=== PATIENT | male | born 1975 | race Caucasian/White ===

== ENCOUNTER 2020-09-13 09:10 | Emergency (ER) | payer OTHER, SELFPAY ==
[2020-09-13 09:15] VITALS: BP 140/95; PULSE 100; RESP 18; TEMP 36.8; O2SAT 98; BMI 21.2
--- NOTE | 2020-09-13 09:24 | XR_ITS ---
WS: [id number] Right knee, 3 views, 09/13/2020 Clinical Data: erythema, swelling, h/o MRSA Comparison: None. Findings: No fractures or dislocations are seen. The joint spaces are normal. The patella is intact. The soft t issues are unremarkable. XR/XR knee RT 3V* [id number] Impression: Negative right knee.
--- NOTE | 2020-09-13 09:33 | W.ED.SKABFB ---
Documented by User: Genevieve Alonso ZIYAD Foy 09/13/20 13:51 HPI - Skin/Abscess/Foreign Bdy General: Chief complaint: Skin/Abscess/Foreign Body Stated complaint: Bilateral knee redness Time Seen by Provider: 09/13/20 09:16 History of Present Illness: HPI narrative: 44-year-old male patient presents to the emergency department with 2-day history of redness to the kneecaps bilateral, he reports outbreak of staph that started to the bilateral lower legs approximately 7 days ago. He has a history of MRSA, history of substance abuse with stated last use 2 years ago. He denies fever or chills; reports increased pain with decreased ability of flexion to the right knee. He reports redness to the right knee is worsened and the knee is hot to the touch. He reports has not taken anything for pain. Onset (ago): day(s) (2) Location: LLE and RLE Severity: moderate Severity scale (1-10): 6 Quality: aching and constant Relieving factors: immobilization Exacerbating factors: movement Associated symptoms: Reports arthralgias and rigidity (rt knee); Deny chills, fever(s), nausea or vomiting Treatments prior to arrival: none Review of Systems General: Reports: 10 or more systems reviewed and unremarkable except in HPI and below Const: Denies: fever(s), chills, body aches, fatigue, malaise or diaphoresis Eyes: Denies: blurry vision, eye discomfort, eye redness or dry eyes ENMT: Denies: throat pain, dental pain or disequilibrium Card: Denies: chest pain, palpitations, irregular heart rhythm, swelling of feet/ankles, dyspnea on exertion or orthopnea Resp: Denies: dyspnea, productive cough, non-productive cough, wheezing, change in phlegm color, hemoptysis or chest congestion GI: Denies: abdominal pain, nausea, vomiting, dysphagia or heartburn : Denies: dysuria Musc: Reports: joint pain, joint swelling, joint redness, joint warmth and joint stiffness; Denies: neck pain or back pain Skin/Breast: Reports: erythema, skin tenderness and changes in skin color; Denies: rash or pruritus Neuro: Denies: headache(s), weakness in extremities or behavioral changes Psych: Denies: anxiety or depression Oscar/Lymph: Denies: easy bruising PFSH ED PFSH: Medical History IV drug abuse Methamphetamine abuse MRSA (methicillin resistant Staphylococcus aureus) Physical Exam Const: COMMON NORMALS: no acute distress, average body habitus, patient oriented x3, healthy appearing, alert and well nourished GENERAL APPEARANCE: cooperative, comfortable, well kempt, well developed and well hydrated NUTRITIONAL APPEARANCE: thin ORIENTATION/CONSCIOUSNESS: Yes awake, Yes oriented to person, Yes oriented to place and Yes oriented to time HENMT: COMMON NORMALS: normocephalic, Normal external nose present and moist oral mucous membranes HEAD & SCALP: normocephalic NOSE: Normal external nose present Eye: COMMON NORMALS: Equal, round and reactive pupils present and EOMs intact bilaterally GENERAL EYE: appearance normal, both eyes and all related structures PUPIL: Yes Equal, round and reactive pupils present Neck/C-Spine: COMMON NORMALS: full ROM and no lymphadenopathy GENERAL: Yes normal visual inspection and Yes trachea midline CERVICAL SPINE: Yes cervical ROM normal Lymph: LYMPHATIC: no lymphadenopathy noted Chest: COMMONS NORMALS: normal inspection of the chest and normal palpation of entire chest wall Resp: COMMON NORMALS: normal respiratory effort, No retractions, No use of accessory muscles and clear to auscultation bilaterally EFFORT & INSPECTION: Yes able to speak in complete sentences AUSCULTATION: clear to auscultation bilaterally Cardio: COMMON NORMALS: regular rate, regular rhythm, S1 normal heart sound present, S2 normal heart sound present and Peripheral pulses 2+ throughout RATE: regular rate RHYTHM: regular rhythm HEART SOUNDS: S1 normal heart sound present and S2 normal heart sound present PERIPHERAL PULSES: Peripheral pulses 2+ throughout GI: COMMON NORMALS: Normal to inspection, nondistended, normoactive bowel sounds present, Soft to palpation and non-tender INSPECTION: Yes normal to inspection PALPATION: Yes Soft to palpation : COMMON NORMALS: Yes no CVA tenderness BLADDER/KIDNEY EXAM: Yes no CVA tenderness Back/Pelvis: COMMON NORMALS: no CVA tenderness, thoracic and lumbar spine normal to inspection, no thoracic nor lumbar tenderness and thoraco-lumbar ROM normal Extremity: COMMON NORMALS: normal to inspection, full ROM, capillary refill normal and no pedal edema GENERAL: Yes normal exam except as noted RIGHT LOWER EXTREMITY: Yes knee joint (+ erythema, edema supeior/anterior, lateral erythema tracking inferior) Right knee: Yes palpation (tenderness to the touch), Yes ROM (limited flexion) and Yes neurovascular exam (distally intact) LEFT LOWER EXTREMITY: Yes knee joint (small amount of superficial erythema present superior/anterior) Left knee: Yes inspection, Yes palpation (slight tenderness over the anterior joint), Yes ROM (full ROM present) and Yes neurovascular exam (distally intact) Neuro: COMMON NORMALS: patient oriented x3 and no focal motor deficits SENSORIUM/ORIENTATION: Yes alert, Yes oriented to person, Yes oriented to place and Yes oriented to time Psych: COMMON NORMALS: mental status grossly normal, Normal thought process present, cooperative and speech normal APPEARANCE: Yes well kempt ATTITUDE: Yes calm ACTIVITY/MOTOR BEHAVIOR: Yes appropriate eye contact, Yes fidgeting and Yes other (appears under the influence of stimulant) SPEECH: Yes normal speech THOUGHT PROCESS: Normal thought process present THOUGHT CONTENT: Yes Normal thought content present Skin: COMMON NORMALS: turgor normal, no petechiae and no mottling GENERAL SKIN EXAM: elasticity normal, turgor normal and no ecchymo WOUNDS: Yes wounds noted (scattered superficial open wounds in various stages of healing BLE) HAIR: normal NAILS: normal OTHER: abscess to the left anterior, superior knee 2 cm x 2 cm with exudate; 15 cm horizontal measurement of the right knee; erythema margins marked Procedures Bursa Procedures Time Out Performed: Yes Side of body: right Site of Procedure: prepatellar bursa XRAY Obtained: normal Antisepsis Used: Povidone-Iodine1% Local Anesthetic: lidocaine 1% Amount of anesthesia used (mL): 5 Fluid obtained (mL): 2 Fluid Type: bloody Patient Tolerated Procedure: well Complications: none Additional Comments: fluid collected and transported to lab for gram stain and culture Course Vital Signs: Vital signs: Vital Signs Temperature 98.2 F 09/13/20 09:15 Pulse Rate 100 09/13/20 09:15 Respiratory Rate 18 09/13/20 09:15 Blood Pressure 140/95 09/13/20 09:15 Pulse Oximetry 98 09/13/20 09:15 MDM - Skin/Abscess/Foreign Bdy Lab Data: Labs: Lab Results 09/13/20 09/13/20 09/13/20 Range/Units 11:17 11:17 11:17 WBC 10.4 H (4.0-10.0) 10^3/ uL RBC 4.10 (4.1-5.3) 10^6/u L Hgb 11.8 (11.7-16.6) g/dL Hct 37.2 L (42.0-52.0) % MCV 90.7 (80-94) fL MCH 28.8 (28.0-34.0) pg MCHC 31.7 (30.0-36.0) g/dL RDW 13.2 (12.1-15.1) % Plt Count 325 (130-400) 10^3/c mm MPV 9.3 (7.4-10.4) fL Neut % (Auto) 66.2 % Lymph % (Auto) 25.6 % Latimer % (Auto) 6.5 % Eos % (Auto) 1.0 % Baso % (Auto) 0.4 % Neut # (Auto) 6.87 (1.8-7.7) 10^3/u L Lymph # (Auto) 2.7 (0.8-4.8) 10^3/u L Latimer # (Auto) 0.7 (0.2-0.9) 10^3/u L Eos # (Auto) 0.1 (0.0-0.8) 10^3/u L Baso # (Auto) 0.0 (0.0-0.1) 10^3/u L Nucleated RBC % (a uto) 0 % Nucleated RBCs # 0.0 /100WBC ESR 21 H (0-10) mm/hr Sodium 134 L (136-145) mmol/L Potassium 4.2 (3.5-5.1) mmol/L Chloride 99 (98-107) mmol/L Carbon Dioxide 27 (22-29) mmol/L Anion Gap 12.2 (5-19) BUN 14 (6-20) mg/dL Creatinine 0.5 L (0.7-1.2) mg/dL GFR Calculation 182.3 H (90-130) mL/min Glucose 88 (65-115) mg/dL Calculated Osmolal ity 278 L (285-295) mOsm/k g Calcium 8.9 (8.5-10.5) mg/dL Total Bilirubin 0.4 (0.15-1.2) mg/dL AST 44 H (0-40) U/L ALT 48 H (0-41) U/L Alkaline Phosphata se 68 (40-130) IU/L C-Reactive Protein 16.4 H (0.0-4.9) mg/L Total Protein 7.1 (6.6-8.7) g/dL Albumin 3.5 (3.5-5.2) g/dL Globulin 3.6 (1.3-4.6) g/dL Imaging Data^: Xray Ortho: Radiologist's impression: [facility] [address] [place] [id number] XRay Report Signed Patient: Charli Welch Unit #: [id number] : 1975 Age/Sex: 44 / M ADM Date: 09/13/20 Loc: ER Room/Bed: Attending Dr: Ordering Provider/Ordering MD: Genevieve Foy Date of Service: 09/13/20 Procedure(s): XR knee RT 3V* [id number] Accession Number(s): [id number] Report Number: [id number] WS: [id number] Right knee, 3 views, 09/13/2020 Clinical Data: erythema, swelling, h/o MRSA Comparison: None. Findings: No fractures or dislocations are seen. The joint spaces are normal. The patella is intact. The soft tissues are unremarkable. XR/XR knee RT 3V* [id number] Impression: Negative right knee. Dictated By: Mary Jane Devlin MD Signed By: Mary Jane Devlin MD Signed Date/Time: 09/13/20939 DD/ 8 US: Radiologist's impression: [facility] [address] [place] [id number] Ultrasound Report Signed Patient: Charli WelchUnit #: [id number] : 1975Acct#:[id number] Age/Sex: 44 / MADM Date: 09/13/20 Loc: ERRoom/Bed: Attending Dr: Ordering Provider/Ordering MD: Genevieve Foy Date of Service: 09/13/20 Procedure(s): US soft tissue/extremity 04350 Accession Number(s): [id number] Report Number: [id number] WS: [id number] INDICATION: Inflammation and swelling in the right knee. Knee pain. TECHNIQUE: Ultrasound soft tissue in the area of concern. FINDINGS: Ultrasound soft tissue right knee area of concern. Small to moderate suprapatellar joint effusion is visualized. The effusion demonstrates some internal debris. Prepatellar soft tissue edema. No drainable abscess. IMPRESSION: 1. Small moderate suprapatellar joint effusion with some internal debris. Recommend correlation for infection and cellulitis. 2. Prepatellar soft tissue edema. Dictated By:Preston Oliver MD Signed By:Preston Oliver MDSigned Date/Time:09/13/20 1130 DD/ 1048 Discharge Plan Discharge Patient Disposition: Home Clinical Impression: MRSA (methicillin resistant Staphylococcus aureus), Effusion of right knee joint, Cellulitis of knee, right Condition: Stable Prescriptions: New clindamycin HCl 300 mg capsule 300 mg PO QID 10 Days Qty: 40 RF: 0 IBU 800 mg tablet 800 mg PO TID PRN (Reason: pain) Qty: 30 RF: 0 Discharge Orders: Discharge ED (Routine); Ordered 09/13/20 Ordered By: Genevieve Foy Referrals: Arash Walsh MD [Primary Care Provider] - Discharge Diet: Usual diet Discharge Activity: Limit activity as instructed Patient Instructions: Methicillin Resistant Staphylococcus Aureus (ED), Cellulitis (ED), Knee Effusion (ED) Activity Restrictions/Additional Instructions: Take clindamycin until all gone, even if feeling better Follow-up with orthopedic specialty next week as scheduled, Wednesday, you will be contacted by social worker school with appointment Continue with cool compresses, never apply ice directly to the skin, compress the area several times daily If increased redness, fever, chills with nausea vomiting or other concerning symptoms such as worsening knee pain/leg pain return to the emergency room for further evaluation Coding Level of Care Code ED Button Decorating Machine Operator for Chg Fwd Exam Comprehensive Documented by User: Lisa Gallardo MD 09/13/20 13:48 HPI - Skin/Abscess/Foreign Bdy General: Chief complaint: Skin/Abscess/Foreign Body Stated complaint: Bilateral knee redness Time Seen by Provider: 09/13/20 09:16 [facility] ED PFS: Medical History IV drug abuse Methamphetamine abuse MRSA (methicillin resistant Staphylococcus aureus) Course ED course: I saw this patient with Genevieve Foy NP - he presents with infection involving the skin around both knees and lower legs. He has a history of meth abuse, but denies any use in 2 years. He has had staph infection s previously. He complains of pain, but has not had fevers or other systemic symptoms. On exam the left knee has a superficial abscess anteriorly. The right leg has a larger abscess on the anterior knee, in the region of the suprapatellar bursa. The joint id not hot, red or swollen. There is no pain with in line pressure on the joint. US with fluid collection - unclear if involves the joint. I spoke with Dr. Chen - agrees with plan to drain, start clindamycin and have him follow up in the office on Wednesday. I also invited the patient to return to the ED for a recheck in 1 - 2 days as well. Vital Signs: Vital signs: Vital Signs Temperature 98.2 F 09/13/20 09:15 Pulse Rate 100 09/13/20 09:15 Respiratory Rate 18 09/13/20 09:15 Blood Pressure 140/95 09/13/20 09:15 Pulse Oximetry 98 09/13/20 09:15 MDM - Skin/Abscess/Foreign Bdy Lab Data: Labs: Lab Results 09/13/20 09/13/20 09/13/20 Range/Units 11:17 11:17 11:17 WBC 10.4 H (4.0-10.0) 10^3/ uL RBC 4.10 (4.1-5.3) 10^6/u L Hgb 11.8 (11.7-16.6) g/dL Hct 37.2 L (42.0-52.0) % MCV 90.7 (80-94) fL MCH 28.8 (28.0-34.0) pg MCHC 31.7 (30.0-36.0) g/dL RDW 13.2 (12.1-15.1) % Plt Count 325 (130-400) 10^3/c mm MPV 9.3 (7.4-10.4) fL Neut % (Auto) 66.2 % Lymph % (Auto) 25.6 % Latimer % (Auto) 6.5 % Eos % (Auto) 1.0 % Baso % (Auto) 0.4 % Neut # (Auto) 6.87 (1.8-7.7) 10^3/u L Lymph # (Auto) 2.7 (0.8-4.8) 10^3/u L Latimer # (Auto) 0.7 (0.2-0.9) 10^3/u L Eos # (Auto) 0.1 (0.0-0.8) 10^3/u L Baso # (Auto) 0.0 (0.0-0.1) 10^3/u L Nucleated RBC % (a uto) 0 % Nucleated RBCs # 0.0 /100WBC ESR 21 H (0-10) mm/hr Sodium 134 L (136-145) mmol/L Potassium 4.2 (3.5-5.1) mmol/L Chloride 99 (98-107) mmol/L Carbon Dioxide 27 (22-29) mmol/L Anion Gap 12.2 (5-19) BUN 14 (6-20) mg/dL Creatinine 0.5 L (0.7-1.2) mg/dL GFR Calculation 182.3 H (90-130) mL/min Glucose 88 (65-115) mg/dL Calculated Osmolal ity 278 L (285-295) mOsm/k g Calcium 8.9 (8.5-10.5) mg/dL Total Bilirubin 0.4 (0.15-1.2) mg/dL AST 44 H (0-40) U/L ALT 48 H (0-41) U/L Alkaline Phosphata se 68 (40-130) IU/L C-Reactive Protein 16.4 H (0.0-4.9) mg/L Total Protein 7.1 (6.6-8.7) g/dL Albumin 3.5 (3.5-5.2) g/dL Globulin 3.6 (1.3-4.6) g/dL Discharge Plan Discharge Patient Disposition: Home Clinical Impression: MRSA (methicillin resistant Staphylococcus aureus), Effusion of right knee joint, Cellulitis of knee, right Condition: Stable Prescriptions: New clindamycin HCl 300 mg capsule 300 mg PO QID 10 Days Qty: 40 RF: 0 IBU 800 mg tablet 800 mg PO TID PRN (Reason: pain) Qty: 30 RF: 0 Discharge Orders: Discharge ED (Routine); Ordered 09/13/20 Ordered By: Genevieve Foy Referrals: Arash Walsh MD [Primary Care Provider] - Discharge Diet: Usual diet Discharge Activity: Limit activity as instructed Patient Instructions: Methicillin Resistant Staphylococcus Aureus (ED), Cellulitis (ED), Knee Effusion (ED) Activity Restrictions/Additional Instructions: Take clindamycin until all gone, even if feeling better Follow-up with orthopedic specialty next week as scheduled, Wednesday, you will be contacted by social worker school with appointment Continue with cool compresses, never apply ice directly to the skin, compress the area several times daily If increased redness, fever, chills with nausea vomiting or other concerning symptoms such as worsening knee pain/leg pain return to the emergency room for further evaluation Coding Level of Care Code ED Button Decorating Machine Operator for Dave Fwjack Exam Comprehensive
--- NOTE | 2020-09-13 09:43 | US_ITS ---
WS: [id number] INDICATION: Inflammation and swelling in the right knee. Knee pain. TECHNIQUE: Ultrasound soft tissue in the area of concern. FINDINGS: Ultrasound soft tissue right knee area of concern. Small to moderate suprapatellar joint ef fusion is visualized. The effusion demonstrates some internal debris. Prepatellar soft tissue edema. No drainable abscess. IMPRESSION: 1. Small moderate suprapatellar joint effusion with some internal debris. Recommend correlation for infection and cellulitis. 2. Prepatellar soft tissue edema.
[2020-09-13 11:34] LABS: Basophils % 0.4 %; Eosinophils # 0.1 10^3/uL (0.0-0.8); Hematocrit 37.2 % (42.0-52.0); Hemoglobin 11.8 g/dL (11.7-16.6); Lymphocytes # 2.7 10^3/uL (0.8-4.8); Lymphocytes % 25.6 %; Mean Corpuscular HGB Conc 31.7 g/dL (30.0-36.0); Mean Corpuscular Hemoglobin 28.8 pg (28.0-34.0); Mean Corpuscular Volume 90.7 fL (80-94); Mean Platelet Volume 9.3 fL (7.4-10.4); Monocytes # 0.7 10^3/uL (0.2-0.9); Monocytes % 6.5 %; Neutrophils # 6.87 10^3/uL (1.8-7.7); Neutrophils % 66.2 %; Nucleated Red Blood Cells % 0 %; Platelet Count 325 10^3/cmm (130-400); Red Cell Distribution Width 13.2 % (12.1-15.1); White Blood Count 10.4 10^3/uL (4.0-10.0)
[2020-09-13 11:45] LABS: Alanine Aminotransferase 48 U/L (0-41); Albumin Level 3.5 g/dL (3.5-5.2); Alkaline Phosphatase 68 IU/L (40-130); Anion Gap 12.2 (5-19); Aspartate Amino Transferase 44 U/L (0-40); Blood Urea Nitrogen 14 mg/dL (6-20); C Reactive Protein 16.4 mg/L (0.0-4.9); Calcium 8.9 mg/dL (8.5-10.5); Carbon Dioxide 27 mmol/L (22-29); Chloride 99 mmol/L (98-107); Globulin 3.6 g/dL (1.3-4.6); Glomerular Filtration Rate 182.3 mL/min (90-130); Glucose 88 mg/dL (65-115); Osmolality Calculated 278 mOsm/kg (285-295); Potassium 4.2 mmol/L (3.5-5.1); Sodium 134 mmol/L (136-145); Total Bilirubin 0.4 mg/dL (0.15-1.2); Total Protein 7.1 g/dL (6.6-8.7)
[2020-09-13] MEDS: ibuprofen 800 mg tablet PO (12:03)
[2020-09-13] MEDS: sulfamethoxazole-trimeth DS 160-800 mg Tablet 1 TAB PO (12:04)
[2020-09-13 12:24] LABS: Erythrocyte Sedimentation Rate 21 mm/hr (0-10)
[2020-09-13] MEDS: lidocaine 1% INJ 20 mL INJECTION (13:40)
[2020-09-13] MEDS: clindamycin 150 mg Capsule 300 MG PO (13:54)
[2020-09-13 13:56] VITALS: BP 127/81; PULSE 83; RESP 18; O2SAT 100
--- NOTE | 2020-09-16 09:17 | DCPLANNER ---
hotel service manager had message to schedule a follow up appointment for patient with ortho. hotel service manager called the ortho clinic, spoke with [facility], gave clinic patients information. hotel service manager was told that patients information would be printed and reviewed. Clinic will call patient with appointment information.
--- NOTE | 2020-09-17 14:04 | PC.NURSE ---
LAB CALLED WITH A CULTURE OF RARE COLONY MRSA. INFO GIVEN TO DR RUBIO
--- NOTE | 2020-09-23 09:22 | PC.NURSE ---
Pt culture results finalized as resistant to Clindamycin, which pt was discharged on. Written orders by DIANE Ivory to call pt and change to Bactrim or have Dr Walsh change. Called Dr Walsh's office and they report Mr Welch is not a patient there and never has been. Attempted to call all 3 numbers on pt face sheet, 2 were out of service and the last number belongs to a lady who has been for several years. Letter sent to address on file to follow up with PCP and call ER for new prescription.
--- NOTE | 2020-09-24 11:54 | DCPLANNER ---
oil well drilling manager called the ortho clinic to confirm that a follow up appointment had been scheduled for patient. oil well drilling manager was told that clinic was unable to reach patient and unable to leave a voicemail. oil well drilling manager called phone number [phone], unable to reach patient, recording stated that this number was disconnected.
== END 2020-09-13 14:01 | disposition home or self-care (01) ==
PROVIDERS: Emergency Provider Nurse Practitioner Family; PCP Family Medicine
DX: M25.461 Effusion, right knee (principal); L03.115 Cellulitis of right lower limb; A49.02 Methicillin resistant Staphylococcus aureus infection, unspecified site; Z86.14 Personal history of Methicillin resistant Staphylococcus aureus infection
CPT/HCPCS: 12345; 20610; 73562; 76882; 80053; 85025; 85651; 86140; 87040; 87070; 87075; 87077; 87186; 87205; 99281; 99283; E0114